=== PATIENT | female | born 1990 | race American Indian/Alaskan Native ===

== ENCOUNTER 2022-05-13 12:30 | Emergency (ER) | payer SELFPAY | END 2022-05-13 15:20 | disposition home or self-care (01) | LOC: JD.ED 12:30 | DX: O20.9 Hemorrhage in early pregnancy, unspecified (principal); O41.8X10 Other specified disorders of amniotic fluid and membranes, first trimester, not applicable or unspecified; O99.891 Other specified diseases and conditions complicating pregnancy; R82.71 Bacteriuria; Z3A.01 Less than 8 weeks gestation of pregnancy | CPT/HCPCS: 36415; 76817; 76817-26; 80053; 81001; 84702; 85025; 86900; 86901; 87086; 99284 ==

== ENCOUNTER 2022-08-10 02:03 | Emergency (ER) | payer MEDICAID | END 2022-08-10 02:54 | disposition home or self-care (01) | LOC: JD.ED 02:03 | DX: O99.891 Other specified diseases and conditions complicating pregnancy (principal); R10.31 Right lower quadrant pain; Z3A.17 17 weeks gestation of pregnancy; Z86.16 Personal history of COVID-19; Z72.0 Tobacco use | CPT/HCPCS: 99283 ==

== ENCOUNTER 2022-12-13 07:31 | Inpatient (IN) | payer MEDICAID ==
[2022-12-13] MEDS ORDERED: Sodium Chloride 0.9% 10 ML Syringe FLUSH PRN (07:34)
[2022-12-13] MEDS ORDERED: Nalbuphine 10 MG/0.5 ML Syringe IVPUSH PRN (07:34)
[2022-12-13] MEDS ORDERED: Lidocaine 1% 50 ML MDV INJECT SCH (07:34)
[2022-12-13 08:04] LABS: BASOPHILS ABSOLUTE AUTO 0.02 K/mm3 (0.01-0.08); BASOPHILS PERCENT AUTO 0.2 % (0.1-1.2); EOSINOPHILS ABSOLUTE AUTO 0.23 K/mm3 (0.04-0.36); EOSINOPHILS PERCENT AUTO 2.1 (0.7-5.8); HEMATOCRIT 34.7 % (34.1-44.9); HEMOGLOBIN 11.2 gm/dl (11.2-15.7); IMMATURE GRAN ABSOLUTE AUTO 0.05 K/mm3 (0.00-0.10); IMMATURE GRAN PERCENT AUTO 0.4 % (<=1.0); LYMPHOCYTES ABSOLUTE AUTO 1.86 K/mm3 (1.18-3.74); LYMPHOCYTES PERCENT AUTO 16.6 % (19.3-51.7); MEAN CORPUSCULAR HEMOGLOBIN 23.6 pg (25.6-32.2); MEAN CORPUSCULAR HGB CONC 32.3 g/dl (32.2-35.5); MEAN CORPUSCULAR VOLUME 73.2 fl (79.4-94.8); MEAN PLATELET VOLUME 9.5 fl (9.4-12.3); MONOCYTES ABSOLUTE AUTO 0.46 K/mm3 (0.24-0.36); MONOCYTES PERCENT AUTO 4.1 % (4.7-12.5); NEUTROPHILS ABSOLUTE AUTO 8.57 K/mm3 (1.56-6.13); NEUTROPHILS PERCENT AUTO 76.6 % (34.0-71.1); PLATELET COUNT,PLT 513 K/mm3 (182-369); RED BLOOD CELL COUNT 4.74 M/mm3 (3.98-5.22); WHITE BLOOD CELL COUNT,WBC 11.19 K/mm3 (3.98-10.04)
[2022-12-13] MEDS ORDERED: Misoprostol 25 MCG (1/4 of 100 MCG) Tab VAG ONE ×2 (08:08→12:35)
[2022-12-13] MEDS: Sodium Chloride 0.9% 10 ML Syringe FLUSH SCH ×2 (10:05→21:10)
[2022-12-13] MEDS: Lactated Ringers 1,000 ML IV SCH ×3 (17:02→21:10)
[2022-12-13] MEDS ORDERED: ePHEDrine 50 MG/ML SDV IVPUSH PRN (17:22)
[2022-12-13] MEDS ORDERED: fentaNYL 100 MCG/2 ML SDV EPIDUR PRN (17:22)
[2022-12-13] MEDS ORDERED: Bupivacaine/fentaNYL/NS 100 ML Bag EPIDUR PRN (17:22)
[2022-12-13] MEDS ORDERED: diphenhydrAMINE 50 MG/ML SDV IVPUSH PRN (17:22)
[2022-12-13] MEDS ORDERED: Lidocaine 1% 10 ML MDV ONE (21:00)
[2022-12-13] MEDS ORDERED: Lidocaine 1.5% with EPINEPHrine 1:200,000 5 ML Amp ONE (21:00)
[2022-12-13] MEDS ORDERED: Oxytocin/Lactated Ringers 10 UNIT/1,000 ML BAG IV SCH (22:15)
[2022-12-14] MEDS ORDERED: Measles, Mumps & Rubella Vaccine 0.5 ML SDV SUBCUT ONE (03:41)
[2022-12-14] MEDS ORDERED: Methylergonovine 0.2 MG/1 ML Amp IM PRN (03:41)
[2022-12-14] MEDS ORDERED: Witch Hazel Medicated Pads 40/Jar TOP PRN (03:41)
[2022-12-14] MEDS ORDERED: Benzocaine/Menthol 20%-0.5% Spray 78 GM Cannister TOP PRN (03:41)
[2022-12-14] MEDS: Ibuprofen 600 MG Tab PO PRN ×3 (03:51→18:12)
[2022-12-14] MEDS: Acetaminophen 325 MG Tab PO PRN ×3 (03:52→21:40)
[2022-12-15] MEDS: Ibuprofen 600 MG Tab PO PRN ×2 (00:27→12:04)
[2022-12-15] MEDS: Acetaminophen 325 MG Tab PO PRN (02:52)
== END 2022-12-15 12:55 | disposition home or self-care (01) | DRG 807 ==
LOC: JD.OB 07:31 → OBSVTOIN 12-14 02:04
PROVIDERS: ADMIT Obstetrics & Gynecology; ATTEND Obstetrics & Gynecology
PROC: 10E0XZZ Delivery of Products of Conception, External Approach (ICD-10-PCS; principal; 2022-12-14)
PROC: 10907ZC Drainage of Amniotic Fluid, Therapeutic from Products of Conception, Via Natural or Artificial Opening (ICD-10-PCS; 2022-12-14)
PROC: 3E0P7VZ Introduction of Hormone into Female Reproductive, Via Natural or Artificial Opening (ICD-10-PCS; 2022-12-14)
PROC: 3E0R3BZ Introduction of Anesthetic Agent into Spinal Canal, Percutaneous Approach (ICD-10-PCS; 2022-12-14)
PROC: 00HU33Z Insertion of Infusion Device into Spinal Canal, Percutaneous Approach (ICD-10-PCS; 2022-12-14)
PROC: 3E0234Z Introduction of Serum, Toxoid and Vaccine into Muscle, Percutaneous Approach (ICD-10-PCS; 2022-12-14)
DX: O26.62 Liver and biliary tract disorders in childbirth (principal); Z37.0 Single live birth; E78.79 Other disorders of bile acid and cholesterol metabolism; K76.89 Other specified diseases of liver; Z3A.36 36 weeks gestation of pregnancy; Z86.16 Personal history of COVID-19; Z23 Encounter for immunization
CPT/HCPCS: 36415; 51701; 51702; 59025; 59409; 85025; 86592; 90471; 90707; 93005; A9270-GY; J2210; J2590; J3010; J3490; J7120

== ENCOUNTER 2024-07-17 17:35 | Emergency (ER) | payer MEDICAID ==
[2024-07-17] MEDS: valACYclovir 1,000 MG Tab PO STA (18:54)
[2024-07-17] MEDS: predniSONE 20 MG Tab PO ONE (18:54)
== END 2024-07-17 19:28 | disposition home or self-care (01) ==
LOC: JD.ED 17:35
DX: G51.0 Bell's palsy (principal); Z86.16 Personal history of COVID-19; Z79.899 Other long term (current) drug therapy
CPT/HCPCS: 70450; 99284; A9270; J7512

== ENCOUNTER 2025-02-12 07:16 | Emergency (ER) | payer MEDICAID ==
[2025-02-12 07:57] LABS: BASOPHILS ABSOLUTE AUTO 0.1 K/mm3 (0.0-0.2); BASOPHILS PERCENT AUTO 0.6 % (0.0-1.0); EOSINOPHILS ABSOLUTE AUTO 0.3 K/mm3 (0.0-0.4); EOSINOPHILS PERCENT AUTO 2.7 % (0.0-6.0); IMMATURE GRAN ABSOLUTE AUTO 0.03 K/mm3 (0.00-0.05); IMMATURE GRAN PERCENT AUTO 0.3 % (0.0-0.4); LYMPHOCYTES ABSOLUTE AUTO 1.8 K/mm3 (1.0-4.8); LYMPHOCYTES PERCENT AUTO 16.0 % (24.0-44.0); MEAN PLATELET VOLUME 9.3 fl (9.4-12.3); MONOCYTES ABSOLUTE AUTO 0.4 K/mm3 (0.0-0.8); MONOCYTES PERCENT AUTO 3.7 % (0.0-8.0); NEUTROPHILS ABSOLUTE AUTO 8.4 K/mm3 (1.8-7.7); NEUTROPHILS PERCENT AUTO 76.7 % (41.0-71.0); NRBC ABSOLUTE 0.00 (0.00-0.02); NRBC PERCENT 0.0 % (0.0-0.2); PLATELET COUNT,PLT 515 K/mm3 (150-400); RED BLOOD CELL COUNT 5.33 M/mm3 (4.10-5.30); WHITE BLOOD CELL COUNT,WBC 10.94 K/mm3 (3.9-11.3)
[2025-02-12 08:09] LABS: A/G RATIO 0.8 (1-2); ALANINE AMINOTRANSFERASE,ALT 51.0 U/L (14-59); ASPARTATE AMNIOTRANSFERASE,AST 23.0 U/L (15-37); BILIRUBIN TOTAL 0.4 mg/dL (0.2-1.0); BLOOD UREA NITROGEN,BUN 8.0 mg/dL (7-18); CARBON DIOXIDE,CO2 26.0 mEq/L (21-32); CHLORIDE,CL 111.0 mEq/L (98-107); CREATINE KINASE,CK 52.0 U/L (26-192); CREATININE 0.7 mg/dL (0.55-1.02); EST CRCL DRUG DOSING (CG) 99.98 mL/min; ESTIMATED GFR 115.0 mL/min (>60); GLUCOSE RANDOM 96.0 mg/dL (70-99); POTASSIUM,K 3.5 mEq/L (3.5-5.1); PROTEIN TOTAL,TP 7.4 g/dl (6.4-8.2); SODIUM,NA 143.0 mEq/L (136-145)
[2025-02-12] MEDS: Ketorolac 60 MG/2 ML SDV IVPUSH STA (08:18)
[2025-02-12] MEDS: Ondansetron 4 MG/2 ML SDV IV STA (08:20)
[2025-02-12 08:23] LABS: BUPRENORPHINE SCREEN,URINE NEGATIVE (CUTOFF=10); METHADONE SCREEN, URINE NEGATIVE (CUTOFF=200); METHAMPHETAMINES SCREEN, URINE NEGATIVE (CUTOFF=500); OXYCODONE SCREEN,URINE NEGATIVE (CUT0FF=100); THC SCREEN,URINE 20 NG/ML NEGATIVE (CUTOFF=50)
[2025-02-12 08:25] LABS: AMPHETAMINES SCREEN, URINE NEGATIVE (CUTOFF=500)
== END 2025-02-12 09:35 | disposition home or self-care (01) ==
LOC: JD.ED 07:16
DX: R19.7 Diarrhea, unspecified (principal); R11.0 Nausea; R10.9 Unspecified abdominal pain
CPT/HCPCS: 36415; 80053; 80306; 82550; 83690; 83735; 84703; 85025; 96361; 96374; 96375; 99284; A9270; J1885; J2405; J7030